=== PATIENT | male | born 1940 | race Asian ===

== ENCOUNTER 2017-02-17 09:12 | Day surgery (SDC) | payer MEDICARE, OTHER ==
[2017-02-17] VITALS (8 sets, daily range): BP systolic 110–155; BP diastolic 58–90; PULSE 63–98; RESP 12–16; Ht 167.6 cm; Wt 73.0 kg
[~2017-02-17] VITALS: Ht 167.6 cm; Wt 73.0 kg
[~2017-02-17 09:12] MED LIST: CEFAZOLIN 1 GM/50 ML (PMX) 50 ML IVPB ONE; SOD CHLORIDE 0.9% 1,000 ML IV ONE
[2017-02-17] MEDS ORDERED: RIVA20TA PO (09:43)
[2017-02-17] MEDS ORDERED: METO-319 PO (09:44)
[2017-02-17] MEDS ORDERED: ATOR20TA38 PO (09:44)
[2017-02-17] MEDS ORDERED: CHOL100062 PO (09:45)
[2017-02-17] MEDS ORDERED: KRIL1CAP29 PO (09:45)
--- NOTE | 2017-02-17 10:10 | RADRPT ---
PROCEDURE: XR Chest. CLINICAL INDICATION: Pre-operative evaluation. TECHNIQUE: Single frontal chest x-ray. COMPARISON: None available FINDINGS: A 2.6 x 1.3 cm calcific density is present in the lateral left mid lung. Otherwise, the lungs are cl ear. No focal opacification is seen. No pneumothorax or pleural effusion is seen. Aortic arch ath erosclerotic calcifications are present. Otherwise, the cardiomediastinal silhouette is unremarkabl e. The osseous structures are grossly unremarkable. IMPRESSION: 1. No evidence of acute cardiopulmonary disease. 2. Aortic atherosclerosis. 3. Calcific density in the lateral left lung, likely benign in nature. RPTAT: JJ .Luis F Glover MD, MD Date Time Electronically viewed and signed by .Luis F Glover MD, MD on 02/17/2017 10:10 .A/
[2017-02-17 10:20] LABS: BASOPHIL # 0.1 10^3/ul (0.0-0.1); BASOPHILS % 0.9 % (0.0-2.0); EOSINOPHILS # 0.2 10^3/ul (0.0-0.5); EOSINOPHILS % 2.4 % (0.0-7.0); HEMATOCRIT 45.1 % (42.0-52.0); LYMPHOCYTES # 2.1 10^3/ul (0.8-2.9); LYMPHOCYTES % 31.5 % (15.0-51.0); MEAN CORPUSCULAR HEMOGLOBIN 30.2 pg (29.0-33.0); MEAN CORPUSCULAR HGB CONC 33.3 g/dl (32.0-37.0); MEAN CORPUSCULAR VOLUME 90.7 fl (82.0-101.0); MONOCYTE # 0.4 10^3/ul (0.3-0.9); MONOCYTES % 6.1 % (0.0-11.0); NEUTROPHIL # 3.9 10^3/ul (1.6-7.5); NEUTROPHILS % 58.9 % (39.0-77.0); PLATELET COUNT 174 10^3/UL (140-415); RED BLOOD COUNT 4.97 10^6/ul (4.70-6.10); RED CELL DISTRIBUTION WIDTH 12.6 % (11.5-14.5); WHITE BLOOD COUNT 6.6 10^3/ul (4.8-10.8)
[2017-02-17 10:43] LABS: PROTIME 13.2 Sec (12.2-14.2)
[2017-02-17 10:44] LABS: PARTIAL THROMBOPLASTIN TIME 31.7 Sec (25.0-35.0)
[2017-02-17] MEDS ORDERED: MEPERIDINE 100 MG INJ ONE (11:02)
[2017-02-17] MEDS ORDERED: LIDOCAINE 2% (SDV) 5 ML INJ ONE (11:02)
[2017-02-17] MEDS ORDERED: PROPOFOL 20 ML ONE (11:02)
[2017-02-17] MEDS ORDERED: CEFAZOLIN 1 GM INJ ONE (11:10)
[2017-02-17] MEDS ORDERED: BUPIVACAINE 0.5%/EPI (SDV) 30 ML INJ ONE (11:16)
[2017-02-17 11:29] LABS: ALBUMIN 3.8 g/dl (3.3-4.9); ALBUMIN/GLOBULIN RATIO 1.08; BILIRUBIN,INDIRECT 0.8 mg/dl (0-1.1); BILIRUBIN,TOTAL 0.8 mg/dl (0.2-1.3); TOTAL PROTEIN 7.3 g/dl (6.1-8.1)
[2017-02-17] MEDS ORDERED: DIPHENHYDRAMINE 50 MG INJ ONE (11:29)
[2017-02-17 11:36] LABS: CALCIUM 9.1 mg/dl (8.4-10.2); CREATININE 0.84 mg/dl (0.61-1.24); POTASSIUM 4.3 mmol/L (3.5-5.1)
[2017-02-17] MEDS ORDERED: SUCCINYLCHOLINE CHLORIDE 100 MG/5 ML SYG IV ONE (11:43)
--- NOTE | 2017-02-17 11:53 | SIPON ---
Date/Time of Note Date/Time of Note DATE: 02/17/17 TIME: 11:52 Operative Report Preoperative Diagnosis Right axillary mass Postoperative Diagnosis Same Operation/Procedure Performed Resection of right axillary mass with local skin flap advancement closure en bloc with the portion of skin Surgeon see signature line billing assistant Dr Akins Anesthesia: general Estimated blood loss: 0 - 10 ml's Transfusion Required none Specimen Right axillary mass with attached skin Grafts/Implants none Complications none STU GODOY MD Feb 17, 2017 11:53
--- NOTE | 2017-02-17 12:11 | OPR ---
DATE OF OPERATION: 02/17/2017 PREOPERATIVE DIAGNOSIS: Right axillary mass. POSTOPERATIVE DIAGNOSIS: Right axillary mass. OPERATION PERFORMED: Resection of right axillary mass with local skin flap advancement closure. ANESTHESIA: General. ANESTHESIOLOGIST: BRIDGET Muse. SURGEON: Berhane Méndez MD SALES ADVISOR: Dr. Akins. INDICATIONS FOR PROCEDURE: The patient is a 77-year-old male who presented with a mass in his right axilla involving the skin. Clinically it appeared to be benign. He was counseled as to the risks versus benefits of resection. He consented and was scheduled for surgery. DESCRIPTION OF PROCEDURE: The patient was brought to the operating theater, placed under general an esthesia. The right axilla was shaved, prepped and draped in usual sterile fashion. A visually obv ious mass was then identified. Elliptical incision was made around it, including the skin overlying the mass as the skin seemed to be involved in the process and subcutaneous tissue was dissected wit h cautery. The mass was then elevated and meticulously dissected from surrounding tissue using caut shazia. It was removed and sent for permanent pathologic analysis. The wound was irrigated. Due to t he large defect, Dr. Méndez made the decision a skin flap closure was necessary. Skin flaps were the n created using cautery, both anteriorly and posteriorly. The skin flaps were then rotated together and held in place with towel clips while the skin was reapproximated with 2-0 nylon sutures in vert ical mattress fashion. Dictated By: BERHANE MÉNDEZ MD TL/JOHN Conf#: [id number] DID#: [id number]
[2017-02-17] MEDS ORDERED: MEPERIDINE 25 MG INJ IV PRN (12:30)
[2017-02-17] MEDS ORDERED: FENTAnyl 50 MCG/ML VIAL IV PRN ×3 (12:30)
[2017-02-17] MEDS ORDERED: EPHEDrine SULFATE 50 MG/5 ML SYG IV PRN (12:30)
[2017-02-17] MEDS ORDERED: METOCLOPRAMIDE 10 MG INJ IV PRN (12:30)
[2017-02-17] MEDS ORDERED: LABETALOL HCL 20MG INJ IV PRN (12:30)
[2017-02-17] MEDS ORDERED: ONDANSETRON 4 MG INJ IV PRN (12:30)
[2017-02-17] MEDS ORDERED: MIDAZOLAM 1 MG/ML 2 ML INJ IV PRN (12:30)
[2017-02-17] MEDS ORDERED: OXYCODONE/ACETAMINOPHEN (5/325) TAB PO PRN ×2 (12:30)
[2017-02-17] MEDS ORDERED: DIPHENHYDRAMINE 50 MG INJ IV PRN (12:30)
[2017-02-17] MEDS ORDERED: HYDROmorphONE (0.2 MG/ML) 10ML SYG IV PRN ×3 (12:30)
[2017-02-17] MEDS ORDERED: hydrALAzine 20 MG INJ IV PRN (12:30)
--- NOTE | 2017-02-17 16:57 | RADRPT ---
Vent Rate: 64 bpm RR Interval: 0 msec NC Interval: 0 msec QRS Duration: 132 msec QT Interval: 412 msec QTC Interval: 425 msec P-R-T [place]: 0 - 64 - 55 degrees Atrial fibrillation Right bundle branch block Abnormal ECG Electronically Signed By: Tom Rivera [id number]
== END 2017-02-17 14:24 | disposition home or self-care (01) ==
LOC: SDS 09:12
PROVIDERS: ATTEND Surgery Surgical Oncology
DX: L72.0 Epidermal cyst (principal); E78.5 Hyperlipidemia, unspecified; I48.1 Persistent atrial fibrillation
CPT/HCPCS: 14040; 71010; 80053; 85025; 85610; 85730; 88307; 93005; J0690; J1200; J2175